=== PATIENT | male | born 2000 | race Caucasian/White ===

== ENCOUNTER 2019-07-20 08:59 | Outpatient (CLI) | payer BC ==
[2019-07-20 09:42] LABS: BASOPHILS # (AUTO) 0.1 10^3/uL (0.0-0.1); BASOPHILS % (AUTO) 1.1 %; EOSINOPHILS # (AUTO) 0.3 10^3/uL (0.0-0.7); EOSINOPHILS % (AUTO) 5.7 %; HGB - HEMOGLOBIN 15.1 g/dL (14.0-18.0); LYMPHOCYTES # (AUTO) 1.5 10^3/uL (1.5-3.5); LYMPHOCYTES % (AUTO) 32.9 %; MEAN CORPUSCULAR HEMOGLOBIN 30.4 pg (27.0-31.0); MEAN CORPUSCULAR HGB CONC 33.9 g/dL (32.0-36.0); MEAN CORPUSCULAR VOLUME 89.7 fL (80.0-94.0); MEAN PLATELET VOLUME 9.8 fL (7.4-11.4); MONOCYTES # (AUTO) 0.4 10^3/uL (0.0-1.0); MONOCYTES % (AUTO) 7.8 %; NEUTROPHILS # (AUTO) 2.4 10^3/uL (1.5-6.6); NEUTROPHILS % (AUTO) 52.3 %; PLT - PLATELET COUNT 178 10^3/uL (130-450); RED BLOOD COUNT 4.96 10^6/uL (4.70-6.10); RED CELL DISTRIBUTION WIDTH 13.1 % (12.0-15.0); WHITE BLOOD COUNT 4.6 x10^3/uL (4.8-10.8)
[2019-07-20 09:51] LABS: ALBUMIN 4.4 g/dL (3.2-5.5); ALBUMIN/GLOBULIN RATIO 1.5 (1.0-2.2); ALKALINE PHOSPHATASE 69 IU/L (42-121); ALT ALANINE AMINOTRANSFERASE 37 IU/L (10-60); AST ASPARTATE AMINOTRANSFERASE 28 IU/L (10-42); BUN - BLOOD UREA NITROGEN 15 mg/dL (6-20); CARBON DIOXIDE - CO2 25 mmol/L (21-32); CHLORIDE 103 mmol/L (101-111); CHOL/HDL RATIO 3.5 (<5.0); CHOLESTEROL 160 mg/dL; CREATININE 0.6 mg/dL (0.6-1.2); GLUCOSE 97 mg/dL (70-100); HDL CHOLESTEROL 46 mg/dL; LDL CHOLESTEROL,CALCULATED 104 mg/dL; LDL/HDL RATIO 2.3 (<3.6); SODIUM 137 mmol/L (135-145); TOTAL PROTEIN 7.3 g/dL (6.7-8.2); VLDL CHOLESTEROL 10 mg/dL
[2019-07-20 10:02] LABS: THYROID STIMULATING HORMONE 0.87 uIU/mL (0.34-5.60)
[2019-07-20 10:04] LABS: FREE T3 3.93 pg/mL (2.5-3.9)
[2019-07-20 10:05] LABS: FREE T4 (FREE THYROXINE) 0.87 ng/dL (0.58-1.64)
[2019-07-20 10:09] LABS: FERRITIN 131.3 ng/mL (23.9-336.2)
== END 2019-07-20 09:00 | disposition home or self-care (01) ==
LOC: LAB 08:59
DX: M79.10 Myalgia, unspecified site (principal); Z13.29 Encounter for screening for other suspected endocrine disorder; B08.8 Other specified viral infections characterized by skin and mucous membrane lesions; E78.00 Pure hypercholesterolemia, unspecified; F33.2 Major depressive disorder, recurrent severe without psychotic features; F41.1 Generalized anxiety disorder; G43.911 Migraine, unspecified, intractable, with status migrainosus; M06.4 Inflammatory polyarthropathy; H81.01 Meniere's disease, right ear
CPT/HCPCS: 36415; 80053; 80061; 81599; 82306; 82533; 82670; 82728; 83721; 83735; 84403; 84439; 84443; 84481; 84630; 85025

== ENCOUNTER 2021-07-23 18:26 | Emergency (ER) | payer BC ==
[2021-07-23] MEDS ORDERED: lidocaine 1% 20 ML MDV SUBQ ONE (18:37)
[2021-07-23] MEDS ORDERED: TETANUS/DIPHTHERIA/PERTUSSIS 0.5 ML SYRINGE IM ONE (18:46)
--- NOTE | 2021-07-23 18:49 | ED Physician Documentation ---
PD HPI UPPER EXT INJURY - Stated complaint Stated Complaint: LT FINGER LAC/INJ - Chief complaint Chief Complaint: Laceration - History obtained from History obtained from: Patient (Right-handed gentleman not up-to-date on tetanus cut the tip of his left index finger with a box knife just prior to arrival. No other injuries.) Review of Systems Skin: reports: Reviewed and negative Musculoskeletal: reports: Reviewed and negative. denies: Joint swelling Neurologic: reports: Reviewed and negative PD PAST MEDICAL HISTORY - Past Medical History Past Medical History: No - Past Surgical History Past Surgical History: No - Allergies Allergies/Adverse Reactions: Allergies Allergy/AdvReac Type Severity Reaction Status Date / Time Penicillins Allergy Anaphylaxis Verified 07/23/21 18:35 shellfish derived Allergy Anaphylaxis Verified 07/23/21 18:35 - Social History Does the pt smoke?: No Smoking Status: Never smoker Does the pt drink ETOH?: No Does the pt have substance abuse?: No - Immunizations Immunizations are current?: No - POLST Patient has POLST: No PD ED PE NORMAL - Vitals Vital signs reviewed: Yes - General General: Alert and oriented X 3, No acute distress - Extremities Extremities: Other (On the radial side of the distal phalanx of the left index finger there is a shallow 1 cm laceration) - Neuro Neuro: Alert and oriented X 3, Normal speech Results - Vitals Vitals: Vital Signs - 24 hr 07/23/21 18:32 Temperature 36.7 C Heart Rate 80 Respiratory 12 Rate Blood Pressure 128/78 O2 Saturation 99 Oxygen O2 Source Room air Procedures - Laceration (location) Left index finger Length in cm: 1 Wound type: Into subcut fat Wound preparation: Irrigated copiously NS Skin layer closure: Dermabond, Steri strips Other: Tetanus booster given PD MEDICAL DECISION MAKING - ED course ED course: Given the location I recommended suturing although it was quite shallow. He preferred glue and it was closed with glue and Steri-Strips. Departure - Departure Disposition: 01 Home, Self Care Clinical Impression: Laceration of left index finger Qualifiers: Encounter type: initial encounter Damage to nail status: with damage Foreign body presence: without foreign body Qualified Code(s): S61.311A - Laceration without foreign body of left index finger with damage to nail, initial encounter Condition: Good Record reviewed to determine appropriate education?: Yes Instructions: ED Laceration Ext Skin Glue Comments: You can wash briefly with soap and water, then pat dry. As discussed you may need to reapply superglue every other day or so for a week and 1/2 to 2 weeks for full healing. Return for new or worsening symptoms.
[2021-07-23 19:04] VITALS: BP 128/62
== END 2021-07-23 19:04 | disposition home or self-care (01) ==
LOC: ED 18:26
DX: S61.311A Laceration without foreign body of left index finger with damage to nail, initial encounter (principal); W26.0XXA Contact with knife, initial encounter; Z23 Encounter for immunization; Z71.85 Encounter for immunization safety counseling
CPT/HCPCS: 12001; 90471; 99283